=== PATIENT | male | born 1970 | race Caucasian/White ===

== ENCOUNTER 2017-05-23 21:46 | Emergency (ER) | payer OTHER ==
[~2017-05-23] VITALS: Ht 175.2 cm; Wt 95.3 kg
[2017-05-23] MEDS ORDERED: METFORMIN HCL1000 MG PO (21:52)
[2017-05-23] MEDS ORDERED: GLIMEPIRIDE4 M1 PO (21:53)
[2017-05-23] MEDS ORDERED: ATORVASTATIN CA20 M1 PO (21:53)
[2017-05-23] MEDS ORDERED: CLINDAMYCIN150 MG PO (22:35)
== END 2017-05-23 22:59 | disposition home or self-care (01) ==
LOC: ED 21:46
DX: K04.7 Periapical abscess without sinus (principal); R22.0 Localized swelling, mass and lump, head; F17.200 Nicotine dependence, unspecified, uncomplicated